=== PATIENT | female | born 1990 | race Caucasian/White ===

== ENCOUNTER 2018-08-21 14:39 | Emergency (ER) | payer OTHER ==
[2018-08-21 15:04] VITALS: BMI 26.6
[2018-08-21] MEDS ORDERED: SODIUM CHLORIDE 1,000 ML IV STA ×2 (16:23→18:08)
[2018-08-21] MEDS ORDERED: ONDANSETRON 4 MG/2 ML VIAL IVPUSH ONE (16:23)
--- NOTE | 2018-08-21 16:42 | PDOC ---
History of Present Illness - General Chief Complaint: Pain, Acute Stated Complaint: ABD PAIN / RLQ TENDERNESS Time Seen by Provider: 08/21/18 15:43 History Source: Patient Exam Limitations: No Limitations - History of Present Illness Initial Comments: 08/21/18 17:02 28-year-old female with complaints of subjective fever, chills, nausea, vomiting , diarrhea and mid upper abdominal pain that radiates to her belly button region. Patient denies recent travel, recent illness, irregular menses, urinary complaints. patient states went to an urgent care clinic of had a rapid strep which was negative and so came to the emergency room for a second opinion. Timing/Duration: 24 hours Severity: mild Associated Symptoms: reports: fever/chills, loss of appetite, nausea/vomiting Past History - Travel Traveled outside of the country in the last 30 days: No Close contact w/someone who was outside of country & ill: No - Past Medical History Allergies/Adverse Reactions: Allergies Allergy/AdvReac Type Severity Reaction Status Date / Time No Known Allergies Allergy Verified 08/21/18 15:00 Home Medications: Ambulatory Orders NK [No Known Home Medication] 08/21/18 COPD: No Other medical history: MIGRANES - Reproductive History Cervical CA: No Dysfunctional Uterine Bleeding: No Ectopic : No Endometrial CA: No Polycystic Ovaries: No Tubal Ligation: No - Immunization History Immunization Up to Date: Yes - Suicide/Smoking/Psychosocial Hx Smoking History: Never smoked Have you smoked in the past 12 months: No Number of Cigarettes Smoked Daily: 0 Cigars Per Day: 0 Hx Alcohol Use: No Drug/Substance Use Hx: No Substance Use Type: None Patient Lives Alone: No Lives with/in: parents Review of Systems - Review of Systems Able to Perform ROS?: Yes Constitutional: Yes: Chills, Fever, Loss of Appetite HEENTM: No: Symptoms Reported Respiratory: No: Symptoms reported Cardiac (ROS): No: Symptoms Reported ABD/GI: Yes: Diarrhea, Nausea, Vomiting, Abdominal cramping : No: Symptoms Reported Musculoskeletal: No: Symptoms Reported Integumentary: No: Symptoms Reported Hematologic/Lymphatic: No: Symptoms Reported *Physical Exam - Vital Signs Last Vital Signs Temp Pulse Resp BP Pulse Ox 98.5 F 93 H 19 115/73 99 08/21/18 15:01 08/21/18 15:01 08/21/18 15:01 08/21/18 15:01 08/21/18 15:01 - Physical Exam General Appearance: Yes: Nourished, Appropriately Dressed. No: Apparent Distress HEENT: positive: EOMI, MILY, TMs Normal, Pharynx Normal (dry). negative: Pale Conjunctivae Neck: positive: Supple Respiratory/Chest: positive: Lungs Clear, Normal Breath Sounds. negative: Respiratory Distress, Accessory Muscle Use Cardiovascular: positive: Regular Rhythm, Regular Rate. negative: Murmur Gastrointestinal/Abdominal: positive: Soft, Tenderness (epigastric upper periumbilical) Musculoskeletal: negative: CVA Tenderness Integumentary: positive: Normal Color, Warm, Moist Neurologic: positive: Motor Strength 5/5 (ambulatory) Moderate Sedation - Procedure Monitoring Vital Signs: Procedure Monitoring Vital Signs Temperature 98.5 F 08/21/18 15:01 Pulse Rate 93 H 08/21/18 15:01 Respiratory Rate 08/21/18 15:01 Blood Pressure 115/73 08/21/18 15:01 O2 Sat by Pulse Oximetry (%) 99 08/21/18 15:01 ED Treatment Course - LABORATORY CBC & Chemistry Diagram: 08/21/18 17:00 08/21/18 17:00 Medical Decision Making - Medical Decision Making 08/21/18 17:05 Chief complaint: Nausea vomiting abdominal pain with diarrhea with subjective chills since yesterday patient went to urgent care clinic and was tested once a which was negative. Exam: Patient appears dry, otherwise no acute findings besides upper periumbilical and epigastric pain. Plan: Urine, labs, IV fluids, Zofran 08/21/18 17:27 Laboratory Tests 08/21/18 17:00 WBC 7.7 Hgb 14.1 Hct 40.6 MCV 97.7 H MCH 34.0 H Neutrophils % 71.8 08/21/18 18:09 Laboratory Tests 08/21/18 08/21/18 08/21/18 16:48 17:00 17:00 WBC 7.7 Hgb 14.1 Hct 40.6 MCV 97.7 H MCH 34.0 H MCHC 34.8 RDW 12.5 Plt Count 283 Sodium 138 Potassium 3.8 Chloride 104 Carbon Dioxide 23 Anion Gap 10 BUN 10 Creatinine 0.7 Random Glucose 82 Calcium 8.3 L Magnesium Total Bilirubin 0.5 AST 28 ALT 30 Alkaline Phosphatase 87 Total Protein 7.5 Albumin 4.0 Lipase Urine Ketones 2+ H Urine Nitrite Negative Urine HCG, Qual Negative 08/21/18 08/21/18 17:00 17:00 WBC Hgb Hct MCV MCH MCHC RDW Plt Count Sodium Potassium Chloride Carbon Dioxide Anion Gap BUN Creatinine Random Glucose Calcium Magnesium 2.0 Total Bilirubin AST ALT Alkaline Phosphatase Total Protein Albumin Lipase 220 Urine Ketones Urine Nitrite Urine HCG, Qual Pt states feeling better and requesting to eat. 2nd liter of NS ordered and hung *DC/Admit/Observation/Transfer Diagnosis at time of Disposition: Nausea & vomiting - Discharge Dispostion Disposition: HOME Condition at time of disposition: Improved - Referrals Referrals: Zee Andrews MD [Primary Care Provider] - - Patient Instructions Printed Discharge Instructions: Nausea and Vomiting-Adult Additional Instructions: I recommend eating bland foods for the next 48 hours and advance as tolerated. May take Zofran as needed for nausea. Retrun to the ED if s/s worsen - Post Discharge Activity
[2018-08-21] MEDS ORDERED: ONDANSETRON 4 MG/2 ML VIAL ONE (16:46)
[2018-08-21 16:59] LABS: URINE APPEARANCE CLEAR; URINE BILIRUBIN NEGATIVE (<2.0 mg/dL); URINE COLOR YELLOW; URINE GLUCOSE (UA) NEGATIVE (NEGATIVE); URINE KETONE 2+ (NEGATIVE); URINE LEUK ESTERASE NEGATIVE (NEGATIVE); URINE NITRITE NEGATIVE (NEGATIVE); URINE PROTEIN NEGATIVE (NEGATIVE); URINE UROBILINOGEN NEGATIVE mg/dL (0.2-1.0)
[2018-08-21 17:00] LABS: HCG,QUALITATIVE URINE Negative
[2018-08-21 17:07] LABS: BASO % 0.3 % (0-2.0); EOS % 0.1 % (0-4.5); HEMATOCRIT 40.6 % (32.4-45.2); HEMOGLOBIN 14.1 GM/dL (10.7-15.3); LYMPH % 19.8 % (8-40); MCHC 34.8 g/dl (32.0-36.0); MEAN CELL VOLUME 97.7 fl (80-96); NEUT % 71.8 % (42.8-82.8); PLATELET COUNT 283 K/MM3 (134-434); RBC 4.16 M/mm3 (3.60-5.2); RDW 12.5 % (11.6-15.6); WHITE BLOOD COUNT 7.7 K/mm3 (4.0-10.0)
[2018-08-21 18:03] LABS: BILIRUBIN,TOTAL 0.5 mg/dL (0.2-1); BLOOD UREA NITROGEN 10 mg/dL (7-18); CALCIUM 8.3 mg/dL (8.5-10.1); CO2 23 mmol/L (21-32); CREATININE 0.7 mg/dL (0.55-1.3); GLUCOSE,RANDOM 82 mg/dL (74-106); POTASSIUM 3.8 mmol/L (3.5-5.1); SGOT/AST 28 U/L (15-37); SODIUM 138 mmol/L (136-145); TOT PROT 7.5 g/dl (6.4-8.2)
[2018-08-21 18:04] LABS: ALK PHOS 87 U/L (45-117); ANION GAP 10 MMOL/L (8-16); CHLORIDE 104 mmol/L (98-107); SGPT/ALT 30 U/L (13-61)
[2018-08-21 19:53] VITALS: BP 115/59; PULSE 78; TEMP 98.1
== END 2018-08-21 19:54 | disposition home or self-care (01) ==
LOC: JER 14:39
PROC: 3E0337Z Introduction of Electrolytic and Water Balance Substance into Peripheral Vein, Percutaneous Approach (ICD-10-PCS; principal; 2018-08-21)
PROC: 3E033GC Introduction of Other Therapeutic Substance into Peripheral Vein, Percutaneous Approach (ICD-10-PCS; 2018-08-21)
DX: R11.2 Nausea with vomiting, unspecified (principal)
CPT/HCPCS: 36415; 80053; 81003; 83690; 83735; 84703; 85025; 87086; 96361; 96374; 99283-25; J7030

== ENCOUNTER 2018-11-17 13:10 | Emergency (ER) | payer OTHER | END 2018-11-17 14:05 | disposition home or self-care (01) | LOC: JERFT 13:10 ==

== ENCOUNTER 2019-03-10 15:18 | Emergency (ER) | payer OTHER ==
--- NOTE | 2019-03-10 15:49 | PDOC ---
Rapid Medical Evaluation Time Seen by Provider: 03/10/19 15:44 Medical Evaluation: Allergies Allergy/AdvReac Type Severity Reaction Status Date / Time No Known Allergies Allergy Verified 11/17/18 13:22 03/10/19 15:44 Pt presents with R flank pain/lower back pain for 3 days. She state the pain has increased in intensity and feels like when she had pyelo in the past. Denies urinary symptoms Exam: TTP of the R lower back with associated R flank pain Orders: labs, IV, urine Pt to proceed to the ER for further evaluation Discharge Disposition - Diagnosis Back pain - Referrals Referrals: Zee Andrews MD [Primary Care Provider] - - Patient Instructions - Post Discharge Activity
[2019-03-10 15:50] VITALS: BMI 25.7
[2019-03-10 16:44] LABS: BASO % 0.3 % (0-2.0); EOS % 0.4 % (0-4.5); HEMATOCRIT 40.2 % (32.4-45.2); HEMOGLOBIN 13.5 GM/dL (10.7-15.3); LYMPH % 26.3 % (8-40); MCH 32.9 pg (25.7-33.7); MCHC 33.7 g/dl (32.0-36.0); MEAN CELL VOLUME 97.6 fl (80-96); MEAN PLT VOLUME 8.6 fl (7.5-11.1); MONO % 5.8 % (3.8-10.2); NEUT % 67.2 % (42.8-82.8); PLATELET COUNT 341 K/MM3 (134-434); RBC 4.12 M/mm3 (3.60-5.2); RDW 11.7 % (11.6-15.6); WHITE BLOOD COUNT 8.9 K/mm3 (4.0-10.0)
[2019-03-10 17:05] LABS: ALBUMIN 4.2 g/dl (3.4-5.0); BILIRUBIN,TOTAL 0.3 mg/dL (0.2-1); BLOOD UREA NITROGEN 8.5 mg/dL (7-18); CREATININE 0.6 mg/dL (0.55-1.3); POTASSIUM 3.8 mmol/L (3.5-5.1); TOT PROT 7.5 g/dl (6.4-8.2)
[2019-03-10 17:23] LABS: EPI CELLS 1.3 /HPF (0-5/HPF); HYALINE CASTS 1 /lpf (0-8); URINE APPEARANCE CLEAR; URINE BACTERIA 25.4 /hpf (NEGATIVE); URINE BILIRUBIN NEGATIVE (NEGATIVE); URINE COLOR YELLOW; URINE GLUCOSE (UA) NEGATIVE (NEGATIVE); URINE KETONE 2+ (NEGATIVE); URINE LEUK ESTERASE NEGATIVE (NEGATIVE); URINE NITRITE NEGATIVE (NEGATIVE); URINE PROTEIN NEGATIVE (NEGATIVE); URINE RBC 55 /hpf (0-4); URINE UROBILINOGEN 0.2 mg/dL (0.2-1.0); URINE WBC 1 /hpf (0-5)
[2019-03-10] MEDS ORDERED: KETOROLAC TROMETHAMINE 15 MG/ML VIAL IVPUSH ONE (17:27)
--- NOTE | 2019-03-10 18:37 | PDOC ---
History of Present Illness - General Chief Complaint: Back Pain Stated Complaint: L BACK PAIN Time Seen by Provider: 03/10/19 15:44 - History of Present Illness Initial Comments: 03/10/19 18:36 CHIEF COMPLAINT: R flank pain HISTORY OF PRESENT ILLNESS: 28 yo with hx of migraines and pyelo presents to ED with R flank pain x 3 days. Patient reports she wa sconcerned about a recurence of pyeloso she came due to pain to her R flank that is worsened by movement. , came given hx of pyelo and smilar sypmtoms, denies urinary symptoms No recent travel or sick contacts. PAST MEDICAL HISTORY: Denies past medical history FAMILY HISTORY: Denies SOCIAL HISTORY:Denies tobacco, alcohol, illicit drug use. SURGICAL HISTORY: Denies ALLERGIES: No known drug allergies REVIEW OF SYSTEMS General/Constitutional: Denies fever or chills. Denies weakness, weight change. HEENT: Denies change in vision. Denies ear pain or discharge. Denies sore throat. Cardiovascular: Denies chest pain or shortness of breath. Respiratory: Denies cough, wheezing, or hemoptysis. Gastrointestinal: Denies nausea, vomiting, diarrhea or constipation. Denies rectal bleeding. Genitourinary: Denies dysuria, frequency, or change in urination. Musculoskeletal: R flank pain . Denies joint or muscle swelling or pain. Denies neck or back pain. Skin and breasts: Denies rash or easy bruising. Neurologic: Denies headache, vertigo, loss of consciousness, or loss of sensation. Psychiatric: Denies depression or anxiety. PHYSICAL EXAM General Appearance: Well-appearing, appropriately dressed. No apparent distress , no intoxication. HEENT: EOMI, PERRLA, normal ENT inspection, normal voice, TMs normal, pharynx normal. No conjunctival pallor. No photophobia, scleral icterus. Neck: Supple. Trachea midline. No tenderness, rigidity, carotid bruit, stridor , lymphadenopathy, or thyromegaly. Respiratory/Chest: Lungs CTAB. No shortness of breath, chest tenderness, respiratory distress, accessory muscle use. No crackles, rales, rhonchi, stridor , wheezing, dullness Cardiovascular: RRR. S1, S2. No JVD, murmur, bradycardia, tachycardia. Vascular Pulses: Dorsalis-Pedis (R): 2+, Dorsalis-Pedis (L): 2+ Gastrointestinal/Abdominal: Normal bowel sounds. Abdomen soft, non-distended. No tenderness or rebound tenderness. No organomegaly, pulsatile mass, guarding , hernia, hepatomegaly, splenomegaly. Musculoskeletal/Extremities: R CVA tenderness vs R paravertebral tenderness. FROM of all extremities, normal capillary refill. Pelvis Stable. No tenderness to extremities, pedal edema, swelling, erythema or deformity. Integumentary: Appropriate color, dry, warm. No cyanosis, erythema, jaundice or rash Neurologic: laminator preforms II-XII intact. Fully oriented, alert. Appropriate mood/affect. Motor strength 5/5. No appreciable EOM palsy, facial droop or sensory deficit. Past History - Past Medical History Allergies/Adverse Reactions: Allergies Allergy/AdvReac Type Severity Reaction Status Date / Time No Known Allergies Allergy Verified 03/10/19 15:45 Home Medications: Ambulatory Orders Hydrocortisone Acetate [Anusol Hc Suppository -] 25 mg RC DAILY #14 supp.rect Diclofenac Sodium 75 mg PO BID #20 tablet. 03/10/19 COPD: No - Reproductive History Cervical CA: No Dysfunctional Uterine Bleeding: No Ectopic : No Endometrial CA: No Polycystic Ovaries: No Tubal Ligation: No - Immunization History Immunization Up to Date: Yes - Suicide/Smoking/Psychosocial Hx Smoking History: Never smoked Have you smoked in the past 12 months: No Number of Cigarettes Smoked Daily: 0 Cigars Per Day: 0 Hx Alcohol Use: No Drug/Substance Use Hx: No Substance Use Type: None *Physical Exam - Vital Signs Last Vital Signs Temp Pulse Resp BP Pulse Ox 98.8 F 103 H 18 132/96 97 03/10/19 15:46 03/10/19 15:46 03/10/19 15:46 03/10/19 15:46 03/10/19 15:46 ED Treatment Course - LABORATORY CBC & Chemistry Diagram: 03/10/19 16:15 03/10/19 16:15 - ADDITIONAL ORDERS Additional order review: Laboratory Results 03/10/19 03/10/19 03/10/19 16:15 16:15 16:15 Sodium 139 Potassium 3.8 Chloride 106 Carbon Dioxide 26 Anion Gap 7 L BUN 8.5 Creatinine 0.6 Est GFR (CKD-EPI)AfAm 144.78 Est GFR (CKD-EPI)NonAf 124.92 Random Glucose 92 Calcium 9.0 Total Bilirubin 0.3 AST 15 ALT 16 Alkaline Phosphatase 90 Total Protein 7.5 Albumin 4.2 Urine Color Yellow Urine Appearance Clear Urine pH 5.0 Ur Specific [place] 1.019 Urine Protein Negative Urine Glucose (UA) Negative Urine Ketones 2+ H Urine Blood 3+ H Urine Nitrite Negative Urine Bilirubin Negative Urine Urobilinogen 0.2 Ur Leukocyte Esterase Negative Urine WBC (Auto) 1 Urine RBC (Auto) 55 Urine Casts (Auto) 1 U Epithel Cells (Auto) 1.3 Urine Bacteria (Auto) 25.4 Urine HCG, Qual Negative 03/10/19 16:15 RBC 4.12 MCV 97.6 H MCHC 33.7 RDW 11.7 MPV 8.6 Neutrophils % 67.2 Lymphocytes % 26.3 D Monocytes % 5.8 Eosinophils % 0.4 D Basophils % 0.3 - RADIOLOGY Radiology Studies Ordered: Category Date Time Status KIDNEY / RENAL US [US] Stat Ultrasound 03/10/19 17:27 Completed Medical Decision Making - Medical Decision Making 03/12/19 00:25 28 yo with hx of migraines and pyelo presents to ED with R flank pain x 3 days. No UTI on UA. Will await cultures and treat as MSK symptoms. Advised patient to take medication as prescribed and follow up with PMD within the week. Advised patient of signs and symptoms for return to ED. Patient verbalized understanding and agrees to plan. *DC/Admit/Observation/Transfer Diagnosis at time of Disposition: Back pain - Discharge Dispostion Disposition: HOME Condition at time of disposition: Stable Decision to Admit order: No - Prescriptions Prescriptions: Diclofenac Sodium 75 mg PO BID #20 tablet.dr - Referrals Referrals: Zee Andrews MD [Primary Care Provider] - - Patient Instructions Printed Discharge Instructions: DI for Muscle Spasm Additional Instructions: Please take medications as prescribed. Follow up with your primary care doctor if symptoms persist past 7-10 days. If you develop any new or worsening symptoms, please return to the ER. - Post Discharge Activity
[2019-03-10] MEDS ORDERED: KETOROLAC TROMETHAMINE 15 MG/ML VIAL ONE (19:08)
[2019-03-10 19:54] VITALS: BP 118/80; PULSE 81; TEMP 98.4
== END 2019-03-10 19:20 | disposition home or self-care (01) ==
LOC: JER 15:18 → SUPCPDRO 15:18 → JER 19:20
PROC: 3E0333Z Introduction of Anti-inflammatory into Peripheral Vein, Percutaneous Approach (ICD-10-PCS; principal; 2019-03-10)
DX: M54.5 Low back pain (principal)
CPT/HCPCS: 36415; 76775-TC; 80053; 81003; 84703; 85025; 87086; 99282-25